=== PATIENT | male | born 1950 | race Caucasian/White ===

== ENCOUNTER → 2018-05-19 | Outpatient (CLI) | payer OTHER ==
[~2018-05-19] VITALS: Ht 170.2 cm; Wt 58.9 kg
[~2018-05-19] MED LIST: COLACE 100100 MG/CAP PO; FENTANYL 25 MCG TD; OXY IR5 MG PO; PRILOSEC 20MG20 MG PO
[2018-05-19 12:05] VITALS: BP 141/92; PULSE 95
[2018-05-19 13:45] VITALS: BP 136/83; PULSE 95
== END ==
LOC: COL.RAD 11:37
DX: C25.9 Malignant neoplasm of pancreas, unspecified (principal); R18.0 Malignant ascites

== ENCOUNTER 2018-05-26 08:36 | Emergency (ER) | payer OTHER ==
[~2018-05-26] VITALS: Ht 170.2 cm; Wt 52.3 kg
[2018-05-26 08:45] VITALS: TEMP 98.7
[2018-05-26] MEDS ORDERED: LOVENOX 100100 MG/ML SQ (09:31)
[2018-05-26] MEDS ORDERED: FENTANYL 100MCG TD (10:49)
[2018-05-26] MEDS ORDERED: LACTULOSE10 GM/153 PO (10:52)
[2018-05-26] MEDS ORDERED: ATIVAN 0.50.5 MG/TAB PO (10:52)
[2018-05-26] MEDS ORDERED: MILK OF MA400 MG/52 PO (10:56)
[2018-05-26] MEDS ORDERED: OXYCODONE H5 MG/5 ML PO (10:57)
[2018-05-26] MEDS ORDERED: PRILOSEC 20MG20 MG PO (10:57)
[2018-05-26] MEDS ORDERED: ROXICODONE 55 MG/TAB PO (10:58)
[2018-05-26] MEDS ORDERED: PHENERGAN 25 TA25 MG PO (10:58)
[2018-05-26] MEDS ORDERED: ROXANOL 20MG20 MG/ML PO (10:59)
[2018-05-26] MEDS ORDERED: SENOKOT S 50 MG1 TAB PO (10:59)
[2018-05-26] MEDS ORDERED: ZOFRAN ODT4 MG PO (11:00)
[2018-05-26] MEDS ORDERED: MYLICON 8080 MG/TAB. PO (11:00)
[2018-05-26] MEDS ORDERED: DILAUDID 2MG/2 MG/M1 IV ×2 (14:46→14:48)
[2018-05-26 15:01] VITALS: BP 143/92; PULSE 94
== END 2018-05-26 15:01 ==
LOC: COL.ER 08:36
DX: C25.9 Malignant neoplasm of pancreas, unspecified (principal); F17.210 Nicotine dependence, cigarettes, uncomplicated
CPT/HCPCS: J1170; J2405; J7030